=== PATIENT | female | born 1990 | race Hispanic/Latino ===

== ENCOUNTER 2017-05-17 23:15 | Emergency (ER) | payer SELFPAY ==
[~2017-05-17] VITALS: Ht 157.5 cm; Wt 80.0 kg
[2017-05-18 00:26] LABS: HEMATOCRIT 39.2 % (36.0-46.0); MCH 32.4 PG (29.0-34.0); MCHC 35.7 G/DL (30.0-36.0); MCV 90.7 FL (83-99); PLATELET COUNT 286 K/uL (156-360); RBC DIS.WIDTH-CV 11.9 % (11.8-14.6); RBC DIS.WIDTH-SD 39.8 % (39-53); RED BLOOD COUNT 4.32 M/uL (3.80-5.20); WHITE BLOOD COUNT 8.3 K/uL (4.1-10.2)
[2017-05-18 00:36] LABS: CHLORIDE 105 mEq/L (99-109); POTASSIUM 4.1 mEq/L (3.7-5.4); SODIUM 139 mEq/L (136-147)
[2017-05-18 00:38] LABS: GLUCOSE 105 mg/dL (70-99)
[2017-05-18 00:42] LABS: CREATININE 0.7 mg/dL (0.6-1.3)
[2017-05-18 00:43] LABS: UREA NITROGEN (BUN) 9 mg/dL (9-23)
[2017-05-18 00:45] LABS: TROP-I INTERPRETATION NEGATIVE; TROPONIN-I < 0.01 ng/mL (0.0-0.30)
[2017-05-18 00:48] LABS: GFR ESTIMATE (CALCULATED) > 59 mL/min/
[2017-05-18 01:56] LABS: D-DIMER ELISA < 150.00 ng/mLDDU (<230)
[2017-05-18] MEDS ORDERED: TYLENOL WITH C1 EACH PO (03:45)
[2017-05-18] MEDS ORDERED: MOTRIN600 MG PO (03:45)
[2017-05-18 04:18] VITALS: BP 117/68
== END 2017-05-18 04:19 | disposition home or self-care (01) ==
LOC: EME 23:15
PROVIDERS: Emergency Medicine
DX: R07.89 Other chest pain (principal); J06.9 Acute upper respiratory infection, unspecified; Z88.0 Allergy status to penicillin
CPT/HCPCS: 71046; 80048; 84484; 85027; 85379; 87502; 87651 90; 93005; 99281; 99285